=== PATIENT | female | born 1985 | race Caucasian/White ===

== ENCOUNTER 2018-05-09 01:53 | Emergency (ER) | payer OTHER ==
[~2018-05-09] VITALS: Ht 154.9 cm; Wt 86.4 kg
[2018-05-09 03:00] VITALS: BP 113/75
[2018-05-09] MEDS ORDERED: ACETAMINOPHEN 325 MG TABLET PO ONE (03:30)
== END 2018-05-09 03:35 | disposition home or self-care (01) ==
LOC: EMS 01:55
DX: H60.92 Unspecified otitis externa, left ear (principal); Z91.040 Latex allergy status
CPT/HCPCS: 99283